=== PATIENT | female | born 1985 | race African-American/Black ===

== ENCOUNTER 2019-02-03 01:08 | Emergency (ER) | payer MEDICAID, SELFPAY ==
[2019-02-03 02:04] LABS: Bacteria/HPF None Seen HPF (None Seen); Bilirubin Negative (Negative); Blood, Urine 2+ (Negative); Clarity Clear (Clear); Glucose, Urine (Dipstick) Normal (Negative); Leukocyte 75 Leu/uL (Negative); Nitrite Negative (Negative); Pregnancy Test - Urine (BHCG) Negative (Negative); Pregu Control Background? CLEAR/WHITE (CLR/WHITE); Pregu Control Bar Appear? YES (CONTROL BAR); Protein, Urine (Dipstick) 50 mg/dL (Neg-Trace); RBC/HPF Greater than 50 HPF (0-3); Specific Gravity 1.044 (1.002-1.036); WBC/HPF 21-50 HPF (0-3)
[2019-02-03 02:08] LABS: #Basophils 0.1 thou/uL (0.0-0.2); #Eosinphils 0.1 thou/uL (0.0-0.7); #Lymphocytes 2.6 thou/uL (1.20-3.40); #Monocytes 0.6 thou/uL (0.11-0.59); #Neutrophils 3.9 thou/uL (1.40-6.50); %Basophils 1.4 % (0.0-1.0); %Eosinophils 1.6 % (0.0-10.0); %Lymphocytes 35.8 % (21.0-51.0); %Monocytes 7.6 % (0.0-10.0); %Neutrophils 53.6 % (42.0-75.0); Hemoglobin 12.2 g/dL (12.0-16.0); Mean Corpuscular HGB CONC 32.8 g/dL (32.0-36.0); Mean Corpuscular Hemoglobin 26.6 pg (27.0-31.0); Mean Platelet Volume 6.6 fL (7.4-10.4); Platelet Count 312 thou/uL (130-400); RBC Distribution Width 14.5 % (11.5-14.5); Red Blood Cell (RBC) Count 4.61 mill/uL (4.20-5.40); White Blood Cell (WBC) Count 7.4 thou/uL (4.8-10.8)
[2019-02-03 02:30] LABS: ALT (SGPT) 24 U/L (8-55); AST (SGOT) 34 U/L (5-34); Albumin 4.4 g/dL (3.5-5.0); Alkaline Phosphatase 85 U/L (40-150); Anion Gap 12 mmol/L (10-20); BUN (Urea Nitrogen) 14 mg/dL (7.0-18.7); Bilirubin, Total 0.4 mg/dL (0.2-1.2); CK (CPK) 287 U/L (29-168); Calc. Creatinine Clearance 0 mL/min (70-130); Calcium 10.1 mg/dL (7.8-10.44); Carbon Dioxide 24 mmol/L (22-29); Chloride 106 mmol/L (98-107); Estimated GFR-MDRD Greater than 90; Globulin 3.3 g/dL (2.4-3.5); Glucose 110 mg/dL (70-105); Potassium 3.2 mmol/L (3.5-5.1); Protein, Total 7.7 g/dL (6.0-8.3); Sodium 139 mmol/L (136-145)
[2019-02-03] MEDS ORDERED: Ciprofloxacin 500 MG TAB ONE (04:17)
--- NOTE | 2019-02-03 08:26 | CT ---
PRELIMINARY REPORT/[facility]/EMERGENCY AFTER HOURS PROCEDURE: EXAM: CT Angiography Chest With Contrast EXAM DATE/TIME: 02/03/2019 2:52 AM CLINICAL HISTORY: 33 years old, female; Abnormal findings; Abnormal diagnostic tests; Shortness of breath; Patient HX: Elevated d-dimer; PT C/O dizziness and SOB. Denies chest pain TECHNIQUE: Imaging protocol: Axial computed tomographic angiography images of the chest with intravenous contras t using CT angiography protocol. 3D rendering: MIP reconstructed images were created and reviewed. COMPARISON: No relevant prior studies available. FINDINGS: Pulmonary arteries: No pulmonary emboli. Aorta: No aortic aneurysm. No aortic dissection. Lungs: No consolidations or edema. Pleural space: No pneumothorax or pleural effusion. Heart: The heart is within normal size limits. No abdnormal pericardial effusion. Lymph nodes: No lymphadenopathy. Bones/joints: Nonspecific increased sclerosis of the bones, which can be seen in sickle cell anemia. Soft tissues: No acute finding. IMPRESSION: No evidence of a pulmonary embolism. Thank you for allowing us to participate in the care of your patient. Dictated and Authenticated by: Rika Lindsay MD 02/03/2019 3:24 AM Central Time ([place] & [place]) FINAL REPORT CT ANGIOGRAM OF CHEST: Date: 02/03/19 HISTORY: Dyspnea. Shortness of breath. Elevated D-Dimer. COMPARISON: 01/30/13. TECHNIQUE: CT angiogram of the chest performed in the axial plane. Three-dimensional reformatted images are subm itted for interpretation. FINDINGS: Limited evaluation of the pulmonary arterial system to the level of the lobar arteries secondary to p oor timing of contrast bolus. No filling defects to suggest thromboembolism. Mediastinal structures a nd upper abdominal structures are unremarkable. Trachea and central bronchi are patent. No masses or consolidation. No pleural effusion or pneumothor ax. No acute osseous abnormalities. Visualized aorta has a normal caliber. IMPRESSION: This report is in agreement with the preliminary report by Clara. No evidence of pulmonary artery embo lism to the level of the lobar arteries. Evaluation of segmental and subsegmental arteries is somewha t limited due to timing of bolus. POS: OFF
[2019-02-03] MEDS ORDERED: ISOVUE-370 76%-LOCM 1 ML ONE (10:03)
== END 2019-02-03 04:31 | disposition home or self-care (01) ==
LOC: ERS 01:08
DX: R42 Dizziness and giddiness (principal); E87.6 Hypokalemia; N39.0 Urinary tract infection, site not specified; M19.90 Unspecified osteoarthritis, unspecified site
CPT/HCPCS: 36415; 71275; 80053; 81003; 81015; 81025; 82550; 84484; 85025; 85379; 93005; 96360; Q9966

== ENCOUNTER 2019-06-05 13:18 | Emergency (ER) | payer SELFPAY ==
[2019-06-05] MEDS ORDERED: Metoclopramide HCl 10 MG/2 ML VIAL ONE (14:30)
[2019-06-05] MEDS ORDERED: diphenhydrAMINE 50 MG/ML VIAL ONE (14:30)
== END 2019-06-05 16:15 | disposition home or self-care (01) ==
LOC: ERS 13:18
DX: O99.352 Diseases of the nervous system complicating pregnancy, second trimester (principal); G43.909 Migraine, unspecified, not intractable, without status migrainosus; Z3A.17 17 weeks gestation of pregnancy
CPT/HCPCS: 96365; 96375; J1200; J2765

== ENCOUNTER 2019-10-24 11:26 | Day surgery (SDC) | payer OTHER ==
--- NOTE | 2019-10-24 11:34 | PDOC.FPROB ---
FMR OB H&P: HPI - History of Present Illness Chief Complaint: Iron infusion Indentification: 34 year old History of Present Illness: 34 yoi @ 37.2 presents for iron infusion for AOP and Fe deficient anemia. Pt reports good, FM, denies ctx, lof, vag bleeding and DC. 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 - Surgical History Sx History: 3 c sections - Social History Social History: No etoh, tobacco and drug use FMR OB H&P: Medications - Current Home Medications: Medication Instructions Recorded Confirmed Type Vit,Calc76/Iron/Folic 1 tablet PO DAILY 04/14/14 04/14/14 History [Prenatabs Rx Tablet] Docusate Sodium 100 mg PO BID #0 capsule 04/17/14 Rx Ferrous Sulfate [Iron] 325 mg PO DAILY #0 tablet 04/17/14 Rx HYDROcodone Bit/APAP 5/325 [Dixon] 1 tab PO Q4H PRN #0 tab 04/17/14 Rx Ibuprofen [Motrin] 800 mg PO Q8HR PRN #0 tab 04/17/14 Rx Allergies/Adverse Reactions: Allergies Allergy/AdvReac Type Severity Reaction Status Date / Time No Known Allergies Allergy Verified 09/25/19 16:10 FMR OB H&P: ROS - Review of Systems General: denies: fever/chills Eyes: denies: eye pain, double vision ENT: denies: nasal congestion Respiratory: denies: cough, congestion, shortness of breath Gastrointestinal: denies: abdominal pain, nausea, vomiting Genitourinary (Female): denies: dysuria, vaginal discharge, vaginal pain, contractions, vaginal pressure Musculoskeletal: denies: tenderness Neurologic: denies: numbness, syncope, weakness Integumentary: denies: rash FMR OB H&P: Vital Signs - Heart Tones Baseline: 130 Variability: moderate Acceleration: present Deceleration: absent Category: category 1 [place] contractions every: None FMR OB H&P: Physical Exam - Physical Exam General: NAD, awake, alert and oriented HEENT: normocephalic and atraumatic, PERRLA, EOMI, MMM, conjunctiva clear, grossly normal vision, grossly normal hearing Neck: trachea midline Heart: pulses present, no edema General: no respiratory distress, good air movement, no retractions Abdomen: soft, gravid, non-tender Musculoskeletal: FROM in all four extremities Neurological: no focal deficit Skin: capillary refill <2 seconds, no jaundice Psychiatric: normal mood and affect FMR OB H&P: A/P - Problem List (1) Iron deficiency anemia Status: Acute Code(s): D50.9 - IRON DEFICIENCY ANEMIA, UNSPECIFIED Disposition: 1) Anemia - iron infusion - reg diet - DC to home following iron infusion Dispo: stable, DC to home after iron infusion. Discussion: Date/Time: 10/24/19 9381 This H&P was discussed with [] and [] who agree with the above documentation and plan. Addendum - Attending - Attending Attestation Date/Time: 10/25/19 1981 I personally evaluated the patient and discussed the management with Dr. Mcgowan. I agree with the History, Examination, Assessment and Plan documented above with any addition or exceptions noted below.
[2019-10-24 12:12] VITALS: BP 126/81; BMI 39.1
[2019-10-24] MEDS ORDERED: Iron, Sodium Ferric Gluconate 500 MG in Sodium Chloride 0.9% 250 ML 250 ML IVPB SCH (12:15)
[2019-10-24] MEDS ORDERED: Acetaminophen 500 MG TAB PO SCH (12:15)
== END 2019-10-24 19:15 | disposition home or self-care (01) ==
LOC: L&D/OP 11:26
PROVIDERS: ATTEND Family Medicine
DX: O99.013 Anemia complicating pregnancy, third trimester (principal); D50.9 Iron deficiency anemia, unspecified; Z3A.37 37 weeks gestation of pregnancy; Z79.899 Other long term (current) drug therapy
CPT/HCPCS: J2916; J7050

== ENCOUNTER 2019-11-05 11:44 | Inpatient (IN) | payer OTHER ==
[2019-11-05] MEDS ORDERED: hydrALAZINE 20 MG/ML VIAL SLOW IVP PRN (11:45)
[2019-11-05] MEDS ORDERED: Acetaminophen 500 MG TAB PO PRN (11:45)
[2019-11-05] MEDS ORDERED: Bicitra 30 ML UDCUP PO SCH (11:45)
[2019-11-05] MEDS ORDERED: Ondansetron PF 4 MG/2 ML Vial IVP PRN (11:45)
[2019-11-05] MEDS ORDERED: Promethazine HCl 25 MG/ML VIAL IM PRN ×2 (11:45→11:50)
[2019-11-05] MEDS ORDERED: Naloxone HCl 0.4 mg/ml Vial IV PRN (11:50)
[2019-11-05] MEDS ORDERED: Ondansetron HCl/PF 4 MG/2 ML Vial IVP PRN (11:50)
[2019-11-05] MEDS ORDERED: Naloxone HCl 0.4 mg/ml Vial IVP PRN ×2 (11:50)
[2019-11-05] MEDS ORDERED: diphenhydrAMINE 50 MG/ML VIAL IVP PRN (11:50)
[2019-11-05] MEDS ORDERED: Promethazine HCl 25 MG SUPP PR PRN (11:50)
[2019-11-05] MEDS ORDERED: Fentanyl 100 MCG/2 ML VIAL ONE (11:55)
[2019-11-05] MEDS ORDERED: MORPHINE 5 MG/10 ML PF VIAL ONE (11:55)
[2019-11-05] MEDS ORDERED: Oxytocin 10 UNITS/ML VIAL ONE (11:56)
[2019-11-05] MEDS ORDERED: PHENYLEPHRINE-NS 100 MCG/ML 10 ML SYRINGE ONE (11:56)
[2019-11-05] MEDS ORDERED: Dexamethasone 4 mg/ml Vial ONE (11:56)
[2019-11-05] MEDS ORDERED: Ondansetron PF 4 MG/2 ML Vial ONE ×2 (11:56→15:55)
[2019-11-05] MEDS ORDERED: Communication Order-Pharmacy FS SCH (12:00)
[2019-11-05] MEDS ORDERED: CEFAZOLIN 2 GM in Premix Bag 1 BAG IVPB SCH (12:00)
--- NOTE | 2019-11-05 12:14 | PDOC.FPROB ---
FMR OB H&P: HPI - History of Present Illness Chief Complaint: rCsx Indentification: 34 yo @ 39.0 wks by LMP c/w 10 wk sono History of Present Illness: Pt here for repeat . pt has no acute concerns at this time. Reports FM. Reports occasional ctx. Deneis any vaginal bleeding, LOF. Denies any fever chills. Denies any other symptoms at this time. Primary Care Physician: Sergio FMR OB H&P: Current - Care : 4 Para: 3 Gestational age: 39.0 wks Due date: 11/12/2019 Dating Criteria: LMP - OB Labs Blood type: A RH: positive Antibody Screen: negative HIV: negative RPR: negative HepBsAg: negative Rubella: immune Quad screen: negative ([employer] genetic screen) Urine drug screen: not done Gonorrhea: negative Chlamydia: negative 1 hour gtt: 83/137/99 2 hr GBS: negative H&H: 9.4->9.6->9.5 Additional labs: tsh 1.9 Hgb 5.4 - First Trimester Ultrasound First trimester: 10 wk sono c/w LMP - Anatomy Survey Anatomy survey: 28.2 wks Normal anatomy EFW 47% 25.1 wks. 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 - Surgical History Sx History: LTCSx3 - Social History Social History: Denies any smoking, drinking or illicit drug use - Family History Family History: Family Hx of Diabetes Son w/ autism FMR OB H&P: Medications - Current Home Medications: Medication Instructions Recorded Confirmed Type Vit,Calc76/Iron/Folic 1 tablet PO DAILY 04/14/14 11/05/19 History [Prenatabs Rx Tablet] Ferrous Sulfate [Iron] 325 mg PO DAILY #0 tablet 04/17/14 11/05/19 Rx Allergies/Adverse Reactions: Allergies Allergy/AdvReac Type Severity Reaction Status Date / Time No Known Allergies Allergy Verified 11/05/19 12:09 FMR OB H&P: ROS - Review of Systems General: denies: fever/chills, weight/appetite/sleep changes, night sweats Eyes: denies: vision changes ENT: denies: nasal congestion Cardiovascular: denies: chest pain Respiratory: denies: cough, congestion, shortness of breath Gastrointestinal: denies: abdominal pain, indigestion, nausea, vomiting, diarrhea, constipation Genitourinary (Female): denies: incontinence, hematuria, polyuria, vaginal pain Musculoskeletal: denies: pain, stiffness Neurologic: denies: numbness Integumentary: denies: itching, rash Psychological: denies: depression, anxiety FMR OB H&P: Vital Signs - Maternal Vital signs: BP 126/62 P 111, T 98.8, O2 98% - Heart Tones Baseline: 150 Variability: moderate Acceleration: present Deceleration: absent Category: category 1 [place] contractions every: occasional FMR OB H&P: Physical Exam - Physical Exam General: NAD, awake, alert and oriented HEENT: normocephalic and atraumatic, grossly normal vision, grossly normal hearing, normal nasal mucosa Neck: supple, FROM, trachea midline Heart: RRR, normal S1/S2, no murmurs/rubs/gallops, pulses present, no edema General: CTAB, no respiratory distress, good air movement, no rales/rhonchi, no wheezing, no retractions Abdomen: soft, gravid, non-tender, bowel sound present, no masses, no hernias Musculoskeletal: normal gait and station, FROM in all four extremities, no atrophy Neurological: sensation to pain,touch and proprioception grossly normal Skin: no rash, good tugor, capillary refill <2 seconds (f) Psychiatric: intact recent and remote memory, normal mood and affect FMR OB H&P: A/P - Problem List (1) Current Visit: Yes Status: Acute Qualifiers: Weeks of gestation: 39 weeks Qualified Code(s): Z3A.39 - 39 weeks gestation of (2) Iron deficiency anemia Current Visit: No Status: Acute Code(s): D50.9 - IRON DEFICIENCY ANEMIA, UNSPECIFIED Disposition: 34 yo @ 39.0 wks by LMP comes in for repeat -Cat 1 strip -Routine pre-op orders -Cefazolin abx Anemia of -Last hgb 9.5. Pt had iron infusion a few weeks ago Discussion: Date/Time: 11/05/19 1213 This H&P was discussed with [] and [] who agree with the above documentation and plan. Addendum - Attending - Attending Attestation Date/Time: 11/05/19 1311 I personally evaluated the patient and discussed the management with Dr. Kearney. I agree with the History, Examination, Assessment and Plan documented above with any addition or exceptions noted below. R/b/a/ of a repeat discussed in detail and she desires to proceed.
[2019-11-05 12:15] LABS: Hemoglobin 10.2 g/dL (12.0-16.0); Mean Corpuscular HGB CONC 31.1 g/dL (32.0-36.0); Mean Corpuscular Hemoglobin 25.6 pg (27.0-31.0); Mean Corpuscular Volume 82.3 fL (78.0-98.0); Mean Platelet Volume 7.6 fL (7.4-10.4); Platelet Count 228 thou/uL (130-400); RBC Distribution Width 18.1 % (11.5-14.5); Red Blood Cell (RBC) Count 3.98 mill/uL (4.20-5.40); White Blood Cell (WBC) Count 6.5 thou/uL (4.8-10.8)
[2019-11-05 12:17] VITALS: BMI 39.4
[2019-11-05 12:52] LABS: HBSAg Index 0.17 S/CO (0-0.99); Hep B Surf Ag Non-Reactive S/CO (NonReactive); Syphilis Antibody Nonreactive (Nonreactive); Syphilis Antibody Index 0.03 S/CO (<1.00 Non-Reactive)
[2019-11-05] MEDS ORDERED: Sodium Chloride 0.9% 0 ML ONE (13:29)
[2019-11-05] MEDS ORDERED: Sterile Water 20 ML ONE (13:30)
[2019-11-05] MEDS ORDERED: Acetaminophen 325 MG TAB PO PRN (14:41)
[2019-11-05] MEDS ORDERED: Lanolin Ointment 7 GM TUBE TOP PRN (14:41)
[2019-11-05] MEDS ORDERED: HYDROcodone/Acetaminophen 5/325 mg Tablet PO PRN ×2 (14:41)
[2019-11-05] MEDS ORDERED: Misoprostol 200 MCG TAB PR PRN (14:41)
[2019-11-05] MEDS ORDERED: diphenhydrAMINE 25 MG CAP PO PRN (14:41)
[2019-11-05] MEDS ORDERED: Methylergonovine 0.2 MG TAB PO PRN (14:41)
[2019-11-05] MEDS ORDERED: Methylergonovine 0.2 MG/ML VIAL IM PRN (14:41)
[2019-11-05] MEDS ORDERED: Simethicone Chewable 80 MG TAB PO PRN (14:41)
--- NOTE | 2019-11-05 14:46 | PDOC.OPDEL ---
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 Procedure in Detail: After risks, benefits, and alternatives were explained to the patient, she gave informed consent. Pre-operative antibiotics included Cefazolin 2 gram IV. The patient was taken to the operating room and spinal anesthesia was initiated. She was placed in the supine position with a left tilt and prepped and draped in usual sterile fashion. A Pfannenstiel incision was made with a scalpel and carried down to the level of the fascia which was sharply nicked. The fascial cut was extended bilaterally with Coyne sissors. The superior edge of the cut fascial edges were elevated with Harrison clamps and the underlying rectus muscles were sharply and bluntly dissected free. The recti were divided digitally and retracted manually. The peritoneum was entered bluntly and retracted manually. Bladder blade was placed. A uterine adhesion was tied off, cut, and cauterized to free space. A low transverse score was made with the scalpel and the uterus was entered in the midline with the scalpel. Meconium stained fluid was seen. The hysterotomy was extended manually. The infant was noted to be vertex and was easily delivered by fundal pressure. Mouth and nares were bulb suctioned. Cord clamped and cut and grossly normal female infant was handed to waiting nurse. Cord blood was obtained. Placenta was manually extracted, found to be intact with 3 vessel cord and discarded. The uterus was externalized and the endometrium was curetted with a dry lap. The bladder blade was replaced and the uterus was closed with a running locking #1 monocryl suture. Following this hemostasis was noted. The abdomen was irrigated with saline and suctioned free of clots. The uterus was internalized and the hysterotomy was again noted to be hemostatic. The fascia was closed with a running non-locking 0-PDS suture. The subcutaneous tissue was irrigated and there were no bleeders. The skin was approximated with a running subcuticular 3-0 vicryl suture. All counts were correct. The patient tolerated the procedure well and was taken to the recovery room in stable condition. Quantitative Blood Loss: 345 ml Complications: None Findings: Grossly normal female infant with Apgars of 9 and 9. Grossly normal placenta with 3 vessel cord discarded. Time of : 11/05/19 at 1331 Drains: Parson to gravity draining clear urine Post delivery plan: routine recovery Addendum - Attending - Attending Attestation Date/Time: 11/07/19 1039 I was present and scrubbed for the entire operation. The skin was closed with 4- 0 Monocryl. No immediate complications. Counts correct x 3.
[2019-11-05] MEDS: Ondansetron PF 4 MG/2 ML Vial IVP PRN ×2 (15:58→23:00)
[2019-11-05] MEDS: Acetaminophen 650 MG Suppository PR SCH ×3 (17:28→23:56)
[2019-11-05] MEDS: Ketorolac Tromethamine 30 MG/ML VIAL IVP PRN (21:32)
[2019-11-05] MEDS: Ibuprofen 800 MG TAB PO SCH (23:55)
[2019-11-06] MEDS: Ketorolac Tromethamine 30 MG/ML VIAL IVP PRN (04:47)
[2019-11-06] MEDS: Ondansetron PF 4 MG/2 ML Vial IVP PRN (04:47)
[2019-11-06 05:33] LABS: Hemoglobin 9.3 g/dL (12.0-16.0); Mean Corpuscular Hemoglobin 27.6 pg (27.0-31.0); Mean Corpuscular Volume 83.5 fL (78.0-98.0); Mean Platelet Volume 7.6 fL (7.4-10.4); Platelet Count 174 thou/uL (130-400); RBC Distribution Width 17.9 % (11.5-14.5); Red Blood Cell (RBC) Count 3.38 mill/uL (4.20-5.40); White Blood Cell (WBC) Count 7.3 thou/uL (4.8-10.8)
[2019-11-06] MEDS: Acetaminophen 650 MG Suppository PR SCH (05:43)
[2019-11-06] MEDS: Ibuprofen 800 MG TAB PO SCH ×3 (05:43→21:20)
--- NOTE | 2019-11-06 05:55 | PDOC.OBPPN ---
FMR OB PN: Subj - Interval History Hospital Day: 2 Day: 1 Chief Complaint: nausea, not ambulating well, has not tried to tolerate po Indentification: 34yo >4 delivered viable JOSH Mendez via rLTCS @ 39wga on 11/04 @ 1331 Interval History: VSS, 500ml urine output, nausea, not tolerating PO, no BM/ flatus FMR OB PN: Obj - Maternal Vital signs: BP: [105-128/54-64] HR: [84-109] RR: [16-18] Tmax: [99.0F] Pox: [99]% on [RA] Wt: [114.305kg] - Urine output I&O: 11/04/19 11/05/19 11/06/19 06:59 06:59 06:59 Intake Total 1500 Output Total 1945 Balance -445 - Lochia Lochia: none - Pain Management Intervention: oral medication FMR OB PN: Exam - Physical Exam General: NAD, awake, alert and oriented HEENT: normocephalic and atraumatic, MMM Neck: supple, FROM Chest: non-tender to palpation, no lesions Heart: RRR, normal S1/S2 General: CTAB, no respiratory distress Abdomen: soft, non-tender, bowel sound present, other (incision c/d/i) Neurological: no clonus, no focal deficit : bandage intact, appropriately tender Lymphatic: no unusual bruising or bleeding, no purpura Psychiatric: intact recent and remote memory, good judgement and insight FMR OB PN: Data - Labs Lab results: Laboratory Results - last 24 hr 11/05/19 11/05/19 11/05/19 11:52 11:52 11:52 WBC RBC Hgb Hct MCV MCH MCHC RDW Plt Count MPV Syphilis IgG/IgM Ab Nonreactive Hep Bs Antigen Non-Reactive Blood Type A POSITIVE Antibody Screen NEGATIVE 11/05/19 11/06/19 11:52 05:05 WBC 6.5 7.3 RBC 3.98 L 3.38 L Hgb 10.2 L 9.3 L Hct 32.8 L 28.2 L MCV 82.3 83.5 MCH 25.6 L 27.6 MCHC 31.1 L 33.0 RDW 18.1 H 17.9 H Plt Count 228 174 MPV 7.6 7.6 Syphilis IgG/IgM Ab Hep Bs Antigen Blood Type Antibody Screen FMR OB PN: A/P - Problem List (1) care and examination Current Visit: Yes Status: Acute Code(s): Z39.2 - ENCOUNTER FOR ROUTINE FOLLOW-UP (2) Iron deficiency anemia Current Visit: No Status: Chronic Code(s): D50.9 - IRON DEFICIENCY ANEMIA, UNSPECIFIED (3) S/P repeat low transverse Current Visit: No Status: Acute Code(s): Z98.89 - OTHER SPECIFIED POSTPROCEDURAL STATES * DO NOT USE * Disposition: Patient is a 34yo that delivered a TAGA F via rLTCS @ 39wga on 11/04 @ 1331. #Post- Day 1 #s/p , post-op day 1 -no reported lochia -no flatus or BM, +BS heard on exam -urine output 500ml since surgery -not ambulating 2/2 santos -bandage clean/d/i, slightly ttp along incision -bolus 1L LR, d/c santos, strict I&O -continue antiemetics -pp contraception: interested, possibly OCPs -f/u: PNC in 2-6wks; baby to f/u in [place] or [facility], mother undecided #Hx of iron deficiency anemia #Anemia of -H/H10.2/32.8>9.3/28.2 -continue iron supplementation Diet: Regular Dispo: post-op day 1, no flatus or BM with decreased urine output; 1L LR bolus, continue to monitor urine output; nausea improved with zofran, patient to try PO today Discussion: Date/Time: 11/06/19 0553 This H&P was discussed with [] and [] who agree with the above documentation and plan. Addendum - Attending - Attending Attestation Date/Time: 11/06/19 1002 I personally evaluated the patient and discussed the management with Dr. Villalba. I agree with the History, Examination, Assessment and Plan documented above with any addition or exceptions noted below. Patient feels better this AM and ate breakfast. FC was dc'd just recently and no spontaneous void yet. Her abd exam is unremarkable and only mildly ttp. Besides uterine adhesions the remainder of the surgery was routine. I do not feel any urological injury during the operation. Possibly hypovolemic 2/2 emesis. Follow I/O's. Additional workup as indicated.
[2019-11-06] MEDS ORDERED: Lactated Ringer's 1,000 ML IV SCH (08:30)
[2019-11-06] MEDS: Ferrous Sulfate 325 MG TAB PO SCH (08:49)
[2019-11-06] MEDS: Prenatal Vitamin 1 TAB PO SCH (08:49)
[2019-11-06] MEDS: Polyethylene Glycol 3350 17 GM Packet PO SCH (08:49)
[2019-11-06] MEDS: Docusate 100 MG CAP PO SCH ×2 (08:50→21:20)
[2019-11-06] MEDS ORDERED: Prenatal Vitamin 1 TAB PO SCH (09:00)
[2019-11-06] MEDS ORDERED: Adacel (T-DAP) 0.5 ML SYRINGE IM ONE (14:41)
[2019-11-06] MEDS: HYDROcodone/Acetaminophen 5/325 mg Tablet PO PRN ×2 (16:26→20:24)
[2019-11-07] MEDS: Ibuprofen 800 MG TAB PO SCH ×2 (05:09→13:32)
--- NOTE | 2019-11-07 05:40 | PDOC.OBPPN ---
FMR OB PN: Subj - Interval History Hospital Day: 3 Day: 2 Chief Complaint: mild abd pain with walking Indentification: 34yo >4 delivered viable TAGA F via rLTCS @ 39wga on 11/04 @ 1331 Interval History: tolerating po, ambulating, voiding/passing flatus, no BM yet FMR OB PN: Obj - Maternal Vital signs: BP: [104-116/56-84] HR: [73-89] RR: [16-18] Tmax: [98.8F] Pox: [95]% on [RA] Wt: [114.305kg] - Urine output I&O: 11/05/19 11/06/19 11/07/19 06:59 06:59 06:59 Intake Total 1500 900 Output Total 1945 1300 Balance -445 -400 - Lochia Lochia: moderate - Pain Management Intervention: oral medication FMR OB PN: Exam - Physical Exam General: NAD, awake, alert and oriented HEENT: normocephalic and atraumatic, MMM Neck: supple, FROM Chest: non-tender to palpation, no lesions Heart: RRR, normal S1/S2 General: CTAB, no respiratory distress Abdomen: bowel sound present, other (slightly ttp close to the incision) Musculoskeletal: pulses present, FROM in all four extremities Neurological: no tremor, no focal deficit Skin: no rash, good tugor : incision healing well, no erythema, no edema, no drainage, appropriately tender Lymphatic: no unusual bruising or bleeding, no purpura Psychiatric: intact recent and remote memory, good judgement and insight FMR OB PN: A/P - Problem List (1) care and examination Current Visit: Yes Status: Acute Code(s): Z39.2 - ENCOUNTER FOR ROUTINE FOLLOW-UP (2) Iron deficiency anemia Current Visit: No Status: Chronic Code(s): D50.9 - IRON DEFICIENCY ANEMIA, UNSPECIFIED (3) S/P repeat low transverse Current Visit: No Status: Acute Code(s): Z98.89 - OTHER SPECIFIED POSTPROCEDURAL STATES * DO NOT USE * Disposition: Patient is a 34yo that delivered a TAGA F via rLTCS @ 39wga on 11/04 @ 1331. #Post- Day 2 #s/p , post-op day 2 -moderate lochia reported, some clots -passing flatus, no BM, +BS heard on exam -urine output improved yesterday, 1300ml over 12 hours -santos d/c 11/06/19 -wound healing well without erythema or drainage, slightly ttp along incision -tolerated PO well yesterday, denies n/v -breast feeding infant well -pp contraception: interested, possibly OCPs -interested in going home today, has other children at home -f/u: PNC in 2-6wks; baby to f/u with [facility] #Hx of iron deficiency anemia #Anemia of -H/H10.2/32.8>9.3/28.2 -continue iron supplementation Diet: Regular Dispo: post-op day 2, urine output improved; tolerating PO, ambulating, passing flatus; likely d/c today Discussion: Date/Time: 11/07/19 0539 This H&P was discussed with [Edwardo] and [Megan] who agree with the above documentation and plan. Signature: Kristine Villalba MD, PGY-1 Addendum - Attending - Attending Attestation Date/Time: 11/07/19 1044 I personally evaluated the patient and discussed the management with Dr. Villalba. I agree with the History, Examination, Assessment and Plan documented above with any addition or exceptions noted below.
[2019-11-07] MEDS: Ferrous Sulfate 325 MG TAB PO SCH (08:02)
[2019-11-07] MEDS: Docusate 100 MG CAP PO SCH (08:03)
[2019-11-07] MEDS: Polyethylene Glycol 3350 17 GM Packet PO SCH (08:03)
[2019-11-07] MEDS: HYDROcodone/Acetaminophen 5/325 mg Tablet PO PRN ×2 (08:03→12:03)
[2019-11-07] MEDS: Prenatal Vitamin 1 TAB PO SCH (08:05)
[2019-11-07 08:10] VITALS: BP 120/61; TEMP 98.5
--- NOTE | 2019-11-09 05:38 | PQF ---
Vandana Fox BRANDON [id number] CLINICAL DOCUMENTATION CLARIFICATION FORM: POST DISCHARGE Addendum to original discharge summary date: ____ Late entry note date: __ DATE:11/09/2019 ATTN:[place] Please exercise your independent, professional judgment in responding to the clarification form. Clinical indicators are provided on the bottom of this form for your review Please check appropriate box(s): [ ] Acute blood loss anemia [ x] Post-op anemia related to acute blood loss [ ] Iron Deficiency Anemia [ ] Other diagnosis [ ] Unable to determine In addition, please specify: Present on Admission (POA): [ ] Yes [x ] No [ ] Unable to determine For continuity of documentation, please document condition throughout progress notes and discharge summary. Thank You. CLINICAL INDICATORS - SIGNS / SYMPTOMS / LABS Laboratory 11/04 RBC 3.98, Hgb 10.2, hct 32.8 Laboratory 11/05 RBC 3.38, Hgb 9.3, Hct 28.2 Vital signs 11/05 BP 96/52, Pulse 83, Pulse 12. Temp 98.6 L&D p2 11/04 Estimated blood loss 345 ml H&P p4 11/04 Iron Deficiency Anemia PN p4 11/05 Possibly hypovolemic 2/2 emesis RISK FACTORS H&P p1 11/04 39 weeks gestation H&P p1 11/04 Obesity L&D p1 11/04 s/p Low CS TREATMENTS: Sep 08 IVF Ns 1L SEP 09 Ferrous Sulfate 325 mg oral SEP 09 IV Lactated Ringer's 1L Laboratpry monitoring Collected 11/04 (This form is maintained as a part of the permanent medical record) 2014 [employer] All Rights Reserved [email or web address]
== END 2019-11-07 14:02 | disposition home or self-care (01) | DRG 788 ==
LOC: L&D 11:44 → 3SW 17:07
PROVIDERS: ADMIT Family Medicine; ATTEND Family Medicine
PROC: 10D00Z1 Extraction of Products of Conception, Low, Open Approach (ICD-10-PCS; principal; 2019-11-05)
DX: O34.211 Maternal care for low transverse scar from previous cesarean delivery (principal); Z3A.39 39 weeks gestation of pregnancy; Z37.0 Single live birth; O99.214 Obesity complicating childbirth; E66.9 Obesity, unspecified; D50.9 Iron deficiency anemia, unspecified; O99.02 Anemia complicating childbirth; E86.1 Hypovolemia; O99.89 Other specified diseases and conditions complicating pregnancy, childbirth and the puerperium; Z79.899 Other long term (current) drug therapy
CPT/HCPCS: 36415; 51702; 85027; 86780; 86850; 86900; 86901; 87340; J0690; J1100; J1885; J2274; J2405; J2550; J2590; J3010

== ENCOUNTER 2020-06-22 17:22 | Emergency (ER) | payer OTHER ==
[2020-06-23 02:15] LABS: SARS-CoV-2 N Gene Positive; SARS-CoV-2 by NAA DETECTED (NotDetected); SARS-CoV-2 orf1ab Positive
[2020-06-23 02:16] LABS: SARS-CoV-2 MS2 Positive
[2020-06-23 02:18] LABS: SARS-CoV-2 S Gene Positive
== END 2020-06-22 19:25 | disposition home or self-care (01) ==
LOC: ERS 17:22
DX: U07.1 COVID-19 (principal)
CPT/HCPCS: 87635; 99283; U0003

== ENCOUNTER 2021-12-06 09:13 | Outpatient (CLI) | payer OTHER | END 2021-12-06 09:14 | disposition home or self-care (01) | LOC: BICULT 09:13 | PROVIDERS: ATTEND Family Medicine | DX: O09.522 Supervision of elderly multigravida, second trimester (principal); Z3A.20 20 weeks gestation of pregnancy | CPT/HCPCS: 76805 ==

== ENCOUNTER 2022-08-06 09:59 | Outpatient (CLI) | payer OTHER | END 2022-08-06 10:00 | disposition home or self-care (01) | LOC: RAD-FRANK 09:59 | PROVIDERS: ATTEND Nurse Practitioner Family | DX: M79.651 Pain in right thigh (principal); M25.561 Pain in right knee; M34.9 Systemic sclerosis, unspecified; M16.11 Unilateral primary osteoarthritis, right hip; M17.11 Unilateral primary osteoarthritis, right knee; M25.461 Effusion, right knee ==